=== PATIENT | female | born 1945 | race Caucasian/White ===

== ENCOUNTER 2018-07-04 10:33 | Emergency (ER) | payer MEDICARE, BC ==
[~2018-07-04] VITALS: Ht 152.4 cm; Wt 57.2 kg
[2018-07-04 10:59] VITALS: BP 133/81
[2018-07-04] MEDS ORDERED: NAPROXEN375 M2 ORAL (12:44)
--- NOTE | 2018-07-04 12:44 | Emergency Room Report ---
History of Present Illness General Chief Complaint: Shoulder Injury Source: Patient Present Illness HPI This patient fell onto rue early this am. C/o pain with ROM right shoulder. No other injury or complaint. No trauma, no fever, no shortness of breath, no travel history, no leg swelling, no chest pain, no diaphoresis, no exertional complaints, no nausea, no vomiting, no diarrhea, no abdominal pain. Tolerating po fine, normal urinary output, normal bm. No syncope, LOC, dizziness, lightheadedness, headache. Allergies: Coded Allergies: No Known Allergies (Unverified , 07/04/18) Patient History Last Menstrual Period: menopause Nursing Documentation-PMH Hx Hypertension: Yes Review of Systems Constitutional: Reports: no symptoms Eye: Reports: no symptoms ENT: Reports: no symptoms Respiratory: Reports: no symptoms Cardiovascular: Reports: no symptoms Gastrointestinal: Reports: no symptoms Genitourinary: Reports: no symptoms Musculoskeletal: Reports: no symptoms Skin: Reports: no symptoms Psychiatric: Reports: no symptoms Neurological: Reports: no symptoms Endocrine: Reports: no symptoms Hematologic/Lymphatic: Reports: no symptoms Allergic: Reports: no symptoms All Other Systems: negative except mentioned in HPI Physical Exam Vital Signs Date Time Temp Pulse Resp B/P (MAP) Pulse Ox O2 Delivery O2 Flow Rate FiO2 07/04/18 10:40 98.2 93 18 133/81 96 Room Air Sp02 EP Interpretation: reviewed, normal General Appearance: normal inspection, well appearing, no apparent distress, alert, GCS 15, non-toxic Head: normocephalic, atraumatic Eyes: bilateral eye normal inspection, bilateral eye PERRL, bilateral eye EOMI ENT: normal ENT inspection, hearing grossly normal, normal pharynx, no angioedema, normal voice, moist mucus membranes Neck: normal inspection, full range of motion, supple, no meningismus, no bony tend Respiratory: normal inspection, lungs clear, normal breath sounds, no rhonchi, no respiratory distress, no retraction, no accessory muscle use, no wheezing Cardiovascular #1: normal inspection, regular rate, rhythm, no edema Gastrointestinal: normal inspection, normal bowel sounds, non tender, soft, no mass, non-distended Musculoskeletal: gait/station normal, normal range of motion Neurologic: alert, oriented x3, responsive, motor strength/tone normal, other - limited ROM right shoulder due to pain; right elbow normal, forearm/wrist/ hand normal. NVI Psychiatric: normal inspection, judgement/insight normal, memory normal Suicide Risk Assessment: Suicidal Ideation: No Had intent to initiate attempt: No Pt's plan for suicide attempt: No Has means to complete attempt: No Skin: normal inspection, normal color, no rash, warm/dry Medical Decision Making Diagnostic Impression: Primary Impression: Fracture of humeral head, right, closed Other X-Ray Diagnostic Results Other X-Ray Diagnostic Results : # of Views/Limited Vs Complete: 2 View Indication: Pain EP Interpretation: Yes Interpretation: no dislocation, no soft tissue swelling Impression: Other - humeral head fx Last Vital Signs Date Time Temp Pulse Resp B/P (MAP) Pulse Ox O2 Delivery O2 Flow Rate FiO2 07/04/18 10:59 98.2 80 18 133/81 96 Room Air Status: improved Disposition: HOME, SELF-CARE Scripts Naproxen* (NAPROXEN*) 375 Mg Tablet. 375 MG ORAL TWICE A DAY for 10 Days, #20 TAB Prov: Kimani Delgadillo M.D. 07/04/18 Referrals: NOT CHOSEN [facility]/,REFERRING (PCP) Patient Instructions: Shoulder Fracture Kimani Delgadillo M.D. Jul 04, 2018 12:44
[2018-07-04 12:59] VITALS: BP 131/80
--- NOTE | 2018-07-04 13:50 | Diagnostic Imaging Report ---
Indications: Pain, status post fall Technique: Two views of the humerus Comparison: None Findings: There is abnormal alignment of the humeral neck and head with rotation of the humeral head, suggestive of fracture, although fracture line is not clearly demonstrated. Humeral shaft appears intact. Impression: Abnormal alignment of the humeral neck and head likely indicates humeral neck fracture. Findings discussed by phone with Dr. Delgadillo at the time of interpretation
== END 2018-07-04 13:07 | disposition home or self-care (01) ==
LOC: EMR 11:34
DX: S42.291A Other displaced fracture of upper end of right humerus, initial encounter for closed fracture (principal); W19.XXXA Unspecified fall, initial encounter; Y92.9 Unspecified place or not applicable; I10 Essential (primary) hypertension
CPT/HCPCS: 99283